=== PATIENT | male | born 1995 | race Hispanic/Latino ===

== ENCOUNTER 2024-11-12 03:47 | Emergency (ER) | payer SELFPAY ==
[~2024-11-12] VITALS: Ht 172.7 cm; Wt 66.0 kg
[2024-11-12 04:00] LABS: BASOPHILS 0.5 % (0.2-1.2); EOSINOPHILS 0.9 % (0.8-7.0); LYMPHOCYTES 43.3 % (21.8-53.1); MCH 32.9 PG (25.7-32.2); MCHC 34.7 g/dL (32.3-36.5); MCV 94.7 fL (79.0-92.2); MONOCYTES 7.8 % (5.3-12.2); NEUTROPHILS 47.2 % (34.0-67.9); RBC 4.87 M/uL (4.63-6.08)
[2024-11-12 04:14] LABS: ALT (SGPT) 23.0 U/L (14-59); AST (SGOT) 16.0 U/L (15-37); GLOMERULAR FILTRATION RATE,EST 108.0 mL/min (>60); PROTEIN, TOTAL 8.1 g/dL (6.4-8.2); UREA NITROGEN 9.0 mg/dL (7-18)
[2024-11-12] MEDS ORDERED: MORPHINE SULFATE 4 MG/ML VIAL IV ONE (04:15)
[2024-11-12] MEDS ORDERED: CARAFATE1 GM PO (04:56)
[2024-11-12] MEDS ORDERED: PROTONIX40 MG PO (04:56)
[2024-11-12] MEDS ORDERED: POTASSIUM CHLORIDE 10 MEQ TABCR PO ONE (05:00)
[2024-11-12] MEDS ORDERED: LIDOCAINE & ANTACID 35 ML BTL PO ONE (05:00)
[2024-11-12] MEDS ORDERED: POTASSIUM CHLORIDE 20 MEQ/15 ML CUP PO ONE (05:00)
[2024-11-12] MEDS ORDERED: SUCRALFATE 1 GM TAB PO ONE (05:00)
[2024-11-12 05:10] VITALS: BP 124/78
== END 2024-11-12 05:12 | disposition home or self-care (01) ==
LOC: ED 03:47
PROVIDERS: Family Medicine
DX: K29.70 Gastritis, unspecified, without bleeding (principal)
CPT/HCPCS: 36415; 76705; 80053; 83690; 83735; 85025; 96374; 96375; 99284-25; A9270; J2270; J2405